=== PATIENT | male | born 1975 | race Caucasian/White ===

== ENCOUNTER 2017-06-06 11:07 | Outpatient (CLI) | payer OTHER ==
--- NOTE | 2017-06-07 16:57 | XRAY Report ---
DATE OF SERVICE: 06/06/2017 THREE VIEW RIGHT HAND: 06/06/2017 CLINICAL INDICATION: Pain. FINDINGS: AP, lateral, and oblique views of the right hand demonstrate no evidence of fracture or dislocation. The joint spaces are preserved. There is soft tissue swelling of the index finger, but no foreign body is seen in the soft tissues. No abnormal calcification or ossification is appreciated. IMPRESSION: SOFT TISSUE SWELLING OF THE RIGHT INDEX FINGER, BUT NO EVIDENCE OF FRACTURE OR FOREIGN BODY. TD: 06/07/2017 16:55
== END 2017-06-06 11:08 | disposition home or self-care (01) ==
LOC: DI.N 11:07
PROVIDERS: ATTEND Family Medicine
DX: M79.641 Pain in right hand (principal); R22.31 Localized swelling, mass and lump, right upper limb

== ENCOUNTER 2018-10-07 09:11 | Outpatient (CLI) | payer OTHER ==
--- NOTE | 2018-10-07 11:28 | Ultrasound Report ---
Reason: UMBIL HERNIA, ABD MASS IN RLQ, ABD PAIN Procedure Date: 10/07/2018 Accession Number: [id number] / [id number] Procedure: US - Abdomen Limited CPT Code: FULL RESULT: EXAM: ABDOMEN ULTRASOUND LIMITED EXAM DATE: 10/07/2018 09:38 AM. CLINICAL HISTORY: Umbilical hernia, abdominal mass in right lower quadrant, abdominal pain. COMPARISON: None. TECHNIQUE: Real-time scanning was performed with static images obtained. FINDINGS: In the anterior abdominal wall soft tissues of the right lower quadrant corresponding to the palpable lump is a wider than tall 4.9 x 3.2 x 0.7 cm geographic appearing region with echotexture identical to the surrounding subcutaneous fat, most likely a lipoma. In the midline abdomen superior to the umbilicus is a fat containing 0.3 cm abdominal wall defect which does not reduce during the examination. IMPRESSION: Hernia and possible lipoma as described. RADIA
== END 2018-10-07 09:12 | disposition home or self-care (01) ==
LOC: DI 09:11
PROVIDERS: ATTEND Nurse Practitioner
DX: K42.9 Umbilical hernia without obstruction or gangrene (principal); R10.9 Unspecified abdominal pain
CPT/HCPCS: 76705

== ENCOUNTER 2020-04-20 15:13 | Outpatient (CLI) | payer OTHER | END 2020-04-20 15:14 | disposition home or self-care (01) | LOC: COV 15:13 | PROVIDERS: ATTEND Family Medicine | DX: Z20.828 Contact with and (suspected) exposure to other viral communicable diseases (principal) ==

== ENCOUNTER 2020-05-31 08:55 | Outpatient (CLI) | payer OTHER ==
--- NOTE | 2020-05-31 17:41 | XRAY Report ---
PROCEDURE: Elbow 3 View LT INDICATIONS: OTHER SPRAIN OF L ELBOW TECHNIQUE: 3 views of the elbow were acquired. COMPARISON: None FINDINGS: Bones: Avulsion fracture of the olecranon process of the proximal ulna. Fracture fragment is displace d proximally. Soft tissues: No elbow joint effusion. No suspicious soft tissue calcifications. IMPRESSION: Ulnar olecranon process avulsion fracture. Reviewed by: Ciera Mckeon MD, PhD on 05/31/2020 4:40 PM [facility] Approved by: Ciera Mckeon MD, PhD on 05/31/2020 4:40 PM [facility] Station ID: [id number]
== END 2020-05-31 08:56 | disposition home or self-care (01) ==
LOC: DI.N 08:55
PROVIDERS: ATTEND Nurse Practitioner
DX: S52.022A Displaced fracture of olecranon process without intraarticular extension of left ulna, initial encounter for closed fracture (principal)

== ENCOUNTER 2023-10-22 12:30 | Outpatient (CLI) | payer OTHER ==
--- NOTE | 2023-10-22 15:22 | XRAY Report ---
PROCEDURE: Wrist 1-2V BL INDICATIONS: BILATERAL WRIST PAIN TECHNIQUE: 3 views of the wrist were acquired. COMPARISON: None. FINDINGS: Bones: No fractures or dislocations. No suspicious bony lesions. No significant degenerative albert ge. Soft tissues: No suspicious soft tissue calcifications or masses. IMPRESSION: No acute bony abnormality. Reviewed by: Natacha Garsia MD on 10/22/2023 3:21 PM PDT Approved by: Natacha Garsia MD on 10/22/2023 3:21 PM PDT Station ID: [id number]
== END 2023-10-22 12:45 | disposition home or self-care (01) ==
LOC: DI.N 12:30
PROVIDERS: ATTEND Physician Assistant Medical
DX: M25.531 Pain in right wrist (principal); M25.532 Pain in left wrist